=== PATIENT | male | born 1970 | race Caucasian/White ===

== ENCOUNTER 2016-11-19 05:26 | Day surgery (SDC) | payer MEDICAID ==
[2016-11-17 08:42] LABS: HEMATOCRIT 43.5 % (42.0-54.0); HEMOGLOBIN 14.8 g/dL (13.5-17.5); MCV 88.1 fL (80.0-100.0); MEAN PLATELET VOLUME 9.9 fL (7.4-10.4); RBC 4.94 10x6/uL (4.20-6.10); RDW 13.1 % (11.5-14.5); WBC 6.4 10x3/uL (4.8-10.8)
[~2016-11-19] VITALS: Ht 172.7 cm; Wt 89.8 kg
[~2016-11-19 05:26] MED LIST: LISINOPRIL10 MG PO
[2016-11-19 10:12] VITALS: BP 126/95; Ht 172.7 cm; Wt 89.8 kg
--- NOTE | 2016-11-19 16:26 | NUR ---
1615-ESCORTED VIA WHEELCHAIR TO PERSONAL CAR, LEFT WITH FAMILY MEMBER DRIVING.
--- NOTE | 2016-12-24 09:40 | OP ---
PATIENT NAME: MARLEE ARIAS MEDICAL RECORD: [id number] :70 LOCATION:[facility] ADMISSION DATE: SURGEON: JOSHUA REYNA MD DATE OF OPERATION: 11/19/2016 PREOPERATIVE DIAGNOSIS: Recurrent right inguinal hernia, large. POSTOPERATIVE DIAGNOSES: 1. Recurrent right inguinal hernia, large, indirect. 2. Right cord lipoma. PROCEDURES: 1. Open recurrent right inguinal hernia repair with bilayered preperitoneal polypropylene mesh. 2. Excision of right cord lipoma. SURGEON: Joshua Reyna MD HRIS SPECIALIST: None. BLOOD LOSS: Minimal. ANESTHESIA: General. COMPLICATIONS: None. The risks, possible complications and alternatives sheath to the procedure were explained to the patient. He elects to proceed. The discussion specifically included, but was not limited to, bleeding requiring emergency reoperation, infection, injury to the vas deferens and injury to the cord structures. OPERATIVE COURSE: The patient was conveyed to the operating room electively on 11/19/2016. General anesthesia was induced by the anesthesia staff. The abdomen and genitals were sterilely prepped and draped. I entered the skin through the patient's right inguinal scar. Sharp dissection was carried down through skin and subcutaneous tissue as well as Alex fascia. The external oblique aponeurosis was then sharply cleaned of overlying connective tissue. The external oblique aponeurosis was then incised along the direction of its fibers. I bluntly dissected down through the internal oblique and transversus abdominis muscle layers. A preperitoneal pocket was fashioned bluntly. There was no direct component. There was an indirect sac. It was very large. I reduced it in its entirety. I entered the sac sharply. There was a sliding component to it. I ligated the sac highly. I then divided the sac distal to this ligation, which was a circumferential 3-0 Vicryl suture. I further mobilized the cord structures. There was a cord lipoma which was moderately sized. I clamped the vascular pedicle to the cord lipoma. I then divided the cord lipoma distal to this. I ligated the vascular pedicle with a suture ligature of 3-0 Vicryl suture. I then cut 2 ovals of polypropylene mesh and sutured one on top of the other with a running #1 Surgidac. The mesh was placed in the preperitoneal space. Once I was satisfied with placement of the mesh in the preperitoneal space, I allowed the muscular layers to fall together over the mesh. The muscular layers were sutured together with multiple interrupted horizontal mattress 0 Surgidacs. OPERATIVE REPORT [id number] MARLEE ARIAS I ensured that there was no nerve injury during this closure. The external oblique aponeurosis was closed with running #1 Vicryls. Alex fascia was approximated with interrupted 3-0 Vicryls. The subdermis was approximated with interrupted 3-0 Vicryls. The skin was approximated with a running intracuticular 4-0 Vicryl. Benzoin and Steri-Strips were applied. The patient was then extubated and conveyed to post-anesthesia care unit where he was in stable condition. He will be dismissed home on hydrocodone for pain. I will see him in the office in 2-3 weeks. TRANSINT:[id number] Voice Confirmation ID: [id number] DOCUMENT ID: [id number] JOSHUA REYNA MD at 0940 CC: DIXIE ZAIDI MD [id number] DICTATION DATE: 11/19/16 1419 ACCOUNTING GENERALIST: 11/19/16 1828 [facility] 11/19/16 [facility] [address] [place] [address]
--- NOTE | 2016-12-24 09:40 | HP ---
PATIENT: MARLEE ARIAS MEDICAL RECORD: [id number] ACCOUNT: [id number] LOCATION[facility] : 70 ADMISSION DATE: 11/19/16 HISTORY AND PHYSICAL EXAMINATION This is a history and physical from his visit to see me in the office. He has a large right inguinal hernia. It is reducible. His physical examination is otherwise unchanged from his visit in the office. The risks, possible complications and alternatives to procedure were explained to the patient. He elects to proceed. TRANSINT:[id number] Voice Confirmation ID: [id number] DOCUMENT ID: [id number] JOSHUA REYNA MD at 0940 CC: DIXIE ZAIDI MD [id number] DICTATION DATE: 11/19/16 1107 [employer]ENSIC MATERIALS ENGINEER: 11/19/16 1132 [facility] 11/19/16 [facility] [address] [place] [address]
== END 2016-11-19 16:15 | disposition home or self-care (01) ==
LOC: D.OPS 05:26 → D.PAN 11:15 → D.OPS 11:30 → D.PAN 11:50 → D.OPS 12:15 → D.PAN 12:45 → D.OPS 16:15
PROVIDERS: Anesthesiology
DX: K40.91 Unilateral inguinal hernia, without obstruction or gangrene, recurrent (principal); D17.6 Benign lipomatous neoplasm of spermatic cord

== ENCOUNTER 2017-03-04 09:33 | Emergency (ER) | payer MEDICAID ==
[2016-11-19 10:12] VITALS: BMI 30.1
== END 2017-03-04 12:11 | disposition home or self-care (01) ==
LOC: D.ER 09:33
DX: S81.812A Laceration without foreign body, left lower leg, initial encounter (principal); W45.8XXA Other foreign body or object entering through skin, initial encounter; I10 Essential (primary) hypertension